=== PATIENT | male | born 1985 | race Caucasian/White ===

== ENCOUNTER 2016-09-18 11:45 | Emergency (ER) | payer MEDICARE, MEDICAID ==
[~2016-09-18] VITALS: Ht 162.6 cm; Wt 65.9 kg
[2016-09-18 11:48] VITALS: BP 110/74; PULSE 77; RESP 14; O2SAT 100
--- NOTE | 2016-09-18 12:03 | ED.REPORT ---
HPI-Abd Pain M Under 40 Date of Service Sep 18, 2016 ED Provider: Oscar Patel MD Pt is a 30 year old male with a history of kidney stones and renal failure who presents to the ED complaining of urinary retention. He c/o associated mid- pelvic pain. He denies any other symptoms. Nursing Notes Stated Complaint: POSS KIDNEY STONE Chief Complaint: Male Abdominal Pain Nursing Notes Reviewed: Yes Allergies: Coded Allergies: No Known Allergies (Unverified , 09/18/16) General Time Seen by MD: 12:02 Chief Complaint Unable to urinate Hx Obtained From: Patient Arrived By: Walk-in Sudden in Onset?: No Onset Occurred: Onset unknown Symptom Duration: Since onset Location: : Pelvis Quality: Painful Severity: Current: Moderate Severity: Maximum: Moderate Recent Healthcare: No recent doctor visit, No recent hospitalization Similar Sx Previous: No Past Medical History Past Medical History Kidney stones Epilepsy - result of leukemia Leukemia - Age 5, 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 Physical Exam Initial Vital Signs Vital Signs (First) Date Time Temp Pulse Resp B/P Pulse Ox O2 Delivery O2 Flow Rate FiO2 09/18/16 11:48 77 14 110/74 100 Room Air Initial VS: Reviewed Head / Eyes: Atraumatic, Normocephalic Neck: Supple, Full range of motion Extremities: Vascular intact, Neuro intact Skin: Warm, Dry, No cyanosis Neurologic: Alert, Oriented, Nonfocal Psychiatric: Mood/affect normal, Behavior normal General/Constitutional: Awake, Alert, Cooperative Respiratory / Chest: Atraumatic, Breath sounds NL, Breath sounds = bilat Cardiovascular: Heart rate NL, Regular rhythm, Heart sounds NL Abdomen: Atraumatic, Soft, Non-tender Back: Atraumatic, Full range of motion Interpretation & Diagnostics Lab Results Interpretation Result Diagram: 09/18/16 1205 09/18/16 1205 Test 09/18/16 12:05 09/18/16 12:21 White Blood Count 10.8th/mm3 (3.8-10.1) Red Blood Count 4.81mil/mm3 (4.40-5.80) Hemoglobin 14.1g/dL (13.8-17.2) Hematocrit 41.7% (41.0-50.0) Mean Corpuscular Volume 86.7fL (81-100) Mean Corpuscular Hemoglobin 29.3pg (27.0-35.0) Mean Corpuscular Hemoglobin Concent 33.8% (32.0-37.0) Red Cell Distribution Width 13.0% (12.3-15.4) Platelet Count 383bil/L (150-400) Neutrophils (%) (Auto) 66.3% (40-74) Lymphocytes (%) (Auto) 21.9% (14-46) Monocytes (%) (Auto) 9.9% (4-12) Eosinophils (%) (Auto) 1.3% (0-5) Basophils (%) (Auto) 0.3% (0-3) Hold Purple Top Tube Received (Received) Hold Blue Top Tube Received (Received) Sodium Level 128mEq/L (134-144) Potassium Level 3.1mEq/L (3.5-5.2) Chloride Level 85mEq/L (97-108) Carbon Dioxide Level 21mmol/L (18-29) Blood Urea Nitrogen 11mg/dL (6-20) Creatinine 0.82mg/dL (0.76-1.27) Estimat Glomerular Filtration Rate 116mL/min (>59) Glucose Level 111mg/dL (60-99) Calcium Level 9.0mg/dL (8.5-10.1) Total Bilirubin 0.5mg/dL (0.0-1.2) Aspartate Amino Transf (AST/SGOT) 37U/L (0-50) Alanine Aminotransferase (ALT/SGPT) 27U/L (0-44) Alkaline Phosphatase 114U/L (25-150) Total Protein 7.2g/dL (6.4-8.4) Albumin 4.3g/dL (3.4-5.0) Hold [employer] Top Tube Received (Received) Hold [place] Top Tube Received (Received) Urine Color Straw (YELLOW) Urine Appearance Clear (CLEAR,HAZY) Urine pH 7.5 (5.0-8.0) Urine Specific [place] 1.005 (1.003-1.035) Urine Protein Negativemg/dL (NEG,TRACE) Urine Glucose (UA) Negativemg/dL (NEGATIVE) Urine Ketones Negativemg/dL (NEGATIVE) Urine Occult Blood Negative (NEGATIVE) Urine Nitrite Negative (NEGATIVE) Urine Bilirubin Negative (NEGATIVE) Urine Urobilinogen Normalmg/dL (NORMAL) Urine Leukocyte Esterase Negative (NEGATIVE) Urine RBC 0-2/hpf (0-2) Urine WBC 0-5/hpf (0-5) Urine Epithelial Cells None/hpf (NONE-MOD) Urine Crystals None seen (NONE SEEN) Urine Bacteria None/hpf (NONE-FEW) Urine Hyaline Casts None/lpf (NONE) Urine Granular Casts None seen (NONE SEEN) Urine Waxy Casts None seen (NONE SEEN) Urine Red Blood Cell Casts None seen (NONE SEEN) Urine White Blood Cell Casts None seen (NONE SEEN) Urine Mucus None seen (None Seen) Urine Trichomonas None seen (NONE SEEN) Urine Yeast None (NONE SEEN) Urinalysis Comment None Urine Culture Reflexed Not indicated Hold Urine Received (Received) CT Abd / Pelvis Interpretation IMPRESSION: 1. Nonobstructing left nephrolithiasis. The kidneys have an otherwise normal appearance. No findings to suggest pyelonephritis or hydronephrosis. 2. The bladder is decompressed, a New catheter is present, and the prostate has a normal appearance. The no findings to explain bladder outlet obstruction. Cystogram or direct visualization of the bladder may be helpful. 3. No acute intra-abdominal findings. Normal appendix. 4. Nondisplaced L5-S1 pars interarticularis defects. Dictated by: Marilynn Workman M.D. on 09/18/2016 at 13:47 Study type: Abdominal CT IV contrast Interpretation / Wet Read by: Interpret - Radiologist Re-Eval/Medical Decision Source of Hx: Old records Re-Evaluation/Progress #1: Time of Eval: 13:03 )( Re-Eval Abdomen: Soft, Non-tender Re-Evaluation/Progress Note: Pt rechecked. Pt is resting comfortable. Informed parents of plan for CT scan. Parents understand and agree with plan for CT. All questions addressed. Re-Evaluation/Progress #2: Time of Eval: 14:36 Re-Evaluation/Progress Note: Pt rechecked. Informed pt of plan for discharge. Pt understands and agrees with plan for discharge. F/U instructions and RTER warnings given. All questions addressed. Counseled Regarding: Diagnosis, Lab results, Need for follow-up, When/why to return to ED Patient Discharge & Departure Primary Impression: Acute urinary retention Disposition: Home Discharge Condition All VS Reviewed: Yes Condition: Stable Patient Instructions: New Catheter Placement and Care (ED), Urinary Retention in Men (ED) Additional Instructions: Call the referral urologist, Dr. Rimma Gallo on Tuesday for a follow-up appointment next week. No dangerous cause, such as tumor, is discovered for this urinary problem today. Referrals: Rimma Gallo MD [facility] [place] Attestation Portions of this note were transcribed by Venessa Duffy. I, Dr. Patel personally performed the history, physical exam and medical decision-making; I reviewed and confirmed the accuracy of the information in the transcribed note. Signed by: William Mckinley, 09/18/16 and 14:50. copies to: Rimma Gallo MD; [facility] Oscar Patel MD Sep 18, 2016 12:03 Venessa Montgomery Sep 18, 2016 12:07
[2016-09-18 12:46] LABS: BASOPHILS % (AUTO) 0.3 % (0-3); EOSINOPHILS % (AUTO) 1.3 % (0-5); MONOCYTES % (AUTO) 9.9 % (4-12); Mean Corpuscular Hemoglobin 29.3 pg (27.0-35.0); Mean Corpuscular Volume 86.7 fL (81-100); NEUTROPHILS % (AUTO) 66.3 % (40-74); Platelet Count 383 bil/L (150-400)
[2016-09-18 12:49] LABS: APPEARANCE,URINE CLEAR (CLEAR,HAZY); COLOR,URINE STRAW (YELLOW); OCCULT BLOOD,URINE NEGATIVE (NEGATIVE); PH,URINE 7.5 (5.0-8.0); UROBILINOGEN,URINE NORMAL (NORMAL)
--- NOTE | 2016-09-18 13:55 | DRSVH ---
PROCEDURE: CT ABDOMEN AND PELVIS WITH CONTRAST ([id number]) INDICATIONS: bladder outlet obstruction TECHNIQUE: After the administration of intravenous contrast, 5 mm thick sections acquired from the diaphragm to the symphysis. 5 mm coronal and sagittal reformats were acquired. For radiation dose reduction, the following was used: automated exposure control, adjustment of mA and/or kV according to patient siz e. COMPARISON: None. FINDINGS: Image quality: Excellent. ABDOMEN: Lung bases: Mild atelectasis is present at the bilateral lung bases. Solid organs: Liver and spleen are normal in size and enhancement. Gallbladder is unremarkable. Bi liary system is non dilated. Pancreas enhances normally. No adrenal nodules. Kidneys demonstrate n ormal size and enhancement, without hydronephrosis. A low density cystic lesion is present within th e lower pole the right kidney which likely represents a renal cyst but is incompletely characterized. There is a nonobstructing 5 mm diameter calculus within the lower pole of the left kidney. There is a prominent left extrarenal pelvis. Peritoneum and bowel: Bowel loops demonstrate normal wall thickness and caliber. The appendix is thi n walled and gas filled. No free fluid or air. Nodes and vessels: No retroperitoneal or mesenteric adenopathy by size criteria. Aorta and inferior vena cava are normal in size. Miscellaneous: No ventral hernias. PELVIS: Genitourinary: The bladder is decompressed and a New catheter is present. The prostate measures 4.7 cm in lateral diameter and has a normal appearance. Miscellaneous: No inguinal hernias or adenopathy. Bones: No suspicious bony lesions. No vertebral body compression fractures. There are bilateral no ndisplaced L5-S1 pars interarticularis defects. IMPRESSION: 1. Nonobstructing left nephrolithiasis. The kidneys have an otherwise normal appearance. No findings to suggest pyelonephritis or hydronephrosis. 2. The bladder is decompressed, a New catheter is present, and the prostate has a normal appearance . The no findings to explain bladder outlet obstruction. Cystogram or direct visualization of the keenan dder may be helpful. 3. No acute intra-abdominal findings. Normal appendix. 4. Nondisplaced L5-S1 pars interarticularis defects. Dictated by: Marilynn Workman M.D. on 09/18/2016 at 13:47 Approved by: Marilynn Workman M.D. on 09/18/2016 at 13:53
[2016-09-18 15:09] VITALS: BP 111/45; PULSE 76; RESP 16; O2SAT 97
== END 2016-09-18 15:11 | disposition home or self-care (01) ==
LOC: SED 11:45 → EDBD 11:45 → SED 15:11
DX: R33.9 Retention of urine, unspecified (principal); R10.2 Pelvic and perineal pain; G40.909 Epilepsy, unspecified, not intractable, without status epilepticus; Z87.442 Personal history of urinary calculi
CPT/HCPCS: 51702; 74177; 80053; 81000; 85025; 99284; Q9967

== ENCOUNTER 2016-09-19 07:36 | Emergency (ER) | payer MEDICARE, MEDICAID ==
[~2016-09-19] VITALS: Ht 162.6 cm; Wt 65.9 kg
[2016-09-19 07:40] VITALS: BP 125/78; PULSE 86; RESP 18; O2SAT 97
--- NOTE | 2016-09-19 07:51 | ED.REPORT ---
HPI-General Illness Date of Service Sep 19, 2016 ED Provider: Dr. Cano Pt is a 30 year old male who was seen in the ED last night with complaints of urinary retention who presents to the ED today with concerns for the appearance of blood and "cloudy sediment" in the catheter bag. He reports that his New catheter was placed in the ED last night, and his discharge instructions informed him that he should return if they noticed any abnormal material in the catheter bag. He denies any pain, fevers, chills, or any other complaints. Nursing Notes Stated Complaint: URINE ISSUES Chief Complaint: Male Abdominal Pain Nursing Notes Reviewed: Yes Allergies: Coded Allergies: No Known Allergies (Unverified , 09/18/16) General Time Seen by MD: 07:51 Chief Complaint Other (Blood in catheter bag) Hx Obtained From: Patient, Other family... 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 Reports: Renal failure Past Surgical History Denies Smoking History Unknown if Ever Smoker Social History Alcohol Use: Denies alcohol use Drug Use: Denies drug use Other Social History: Good social support, Lives with parents Ambulatory Status Independent Review of Systems Full Review of Systems Constitutional: Denies: Chills, Fever, Malaise, Weakness - generalized Respiratory: Denies: Non-productive cough, Shortness of breath, Wheezing Cardiovascular: Denies: Chest pain, Syncope GI: Denies: Abdominal pain, Constipation, Diarrhea, Nausea, Vomiting Male: Denies Dysuria, Denies Flank pain, Denies Urinary frequency, Denies Urinary urgency Musculoskeletal: Denies: Back pain, Neck pain Skin: Denies Rash Neurologic: Denies: Change LOC, Dizziness, Headache, Syncope Complete sys rev & neg: except as marked. Physical Exam Vital Signs Vital Signs Date Time Temp Pulse Resp B/P Pulse Ox O2 Delivery O2 Flow Rate FiO2 09/19/16 07:40 36.3 86 18 125/78 97 Initial VS: Reviewed General/Constitutional: Well-developed, Well-nourished Head / Eyes: Atraumatic, Normocephalic, PERRL ENT: Mucous membranes moist, Conjunctiva normal, No scleral icterus Neck: Supple, Non-tender, Full range of motion Respiratory: Breath sounds normal, Clear to auscultation, No respiratory distress Cardiovascular: Regular rate & rhythm, Heart sounds normal, Intact distal pulses Back: No CVA tenderness Skin: Warm, Dry, No cyanosis Neurologic: Alert, Oriented, Nonfocal Abdomen: Atraumatic, Soft, Non-tender New catheter in place, no discharge or blood present Interpretation & Diagnostics Lab Results Interpretation Test 09/19/16 07:47 Re-Eval/Medical Decision Med Decision/Clinical Course Pt was seen yesterday with complaints of acute urinary retention, by Dr. Patel. At that time, CBC was unremarkable. CMP showed good renal function, mild hyponatremia and hypokalemia CT of the abd/pelvis obtained, revealed decompressed bladder with New in place , normal prostate. No findings to explain obstruction. New catheter placed during his visit, plan to follow up with urology next week. Patient presents back to the emergency department today due to seeing some "sediment" in his urine collection bag. Urine is really voiding. It appears to be tinged with blood but is not cloudy. Patient is not having any fever or pain. Presentation is not suggestive of urinary tract infection. They presented back due to general discharge instructions stating to return if there was "sediment" in the New catheter. I see no signs of any concerning process. The presence of some trace sediment is not particularly alarming to me. Patient's examination is benign and I feel he should follow up with urology early next week. I had a discussion with the patient and his family regarding risks associated with New catheter including UTI and catheter obstruction.Prior to discharge follow-up and return precautions were reviewed in detail with the patient who verbalized understanding and agreement with the plan. The patient was discharged in stable condition. Source of Hx: Old records Time of Eval: 08:30 Re-Evaluation/Progress Note: Pt is rechecked and informed of his diagnosis and the plan to discharge him at this time. He understands and agrees, all questions are addressed. Counseled Regarding: Diagnosis, Need for follow-up, When/why to return to ED Discharge & Departure Primary Impression: New catheter in place Additional Impressions: Complication of New catheter Encounter type: initial encounter Qualified Code: T83.9XXA - Unspecified complication of genitourinary prosthetic device, implant and graft, initial encounter Urinary retention Disposition: Home Discharge Condition All VS Reviewed: Yes Condition: Stable Additional Instructions: Thank you for seeking care at the emergency room. Our primary goal today in the ED was to evaluate you for any life-threatening conditions. Your evaluation was reassuring. You should follow-up with the urologist as planned next week. You should return to the ED immediately if you develop fevers, vomiting, cough, shortness of breath, chest pain, lightheadedness, weakness or any other concerning signs or symptoms. Thank you for letting us partake in your care today. Referrals: Rimma Gallo MD Attestation Portions of this note were transcribed by Stephany Salinas. I, Dr. Cano personally performed the history, physical exam and medical decision-making; I reviewed and confirmed the accuracy of the information in the transcribed note. Signed by: William Carrillo, 09/19/2016 08:15 copies to: Rimma Gallo MD, Beck O MD Sep 19, 2016 07:51 DELANEY SALINAS Sep 19, 2016 08:02
[2016-09-19 08:15] LABS: APPEARANCE,URINE CLOUDY (CLEAR,HAZY); COLOR,URINE STRAW (YELLOW); OCCULT BLOOD,URINE LARGE (NEGATIVE); PH,URINE 7.5 (5.0-8.0)
[2016-09-19 08:16] LABS: UROBILINOGEN,URINE NORMAL (NORMAL)
== END 2016-09-19 08:19 | disposition home or self-care (01) ==
LOC: SED 07:36
DX: T83.89XA Other specified complication of genitourinary prosthetic devices, implants and grafts, initial encounter (principal); Y92.9 Unspecified place or not applicable; Y93.89 Activity, other specified; Y99.8 Other external cause status; R33.9 Retention of urine, unspecified; Z96.0 Presence of urogenital implants; Z87.442 Personal history of urinary calculi